=== PATIENT | female | born 1985 | race Caucasian/White ===

== ENCOUNTER 2019-03-21 06:51 | Inpatient (IN) ==
[2019-03-21] MEDS ORDERED: ceFAZolin 2,000 MG in PREMIX 1 EACH IV ONE (07:24)
[2019-03-21] MEDS ORDERED: FAMOTIDINE 20 MG/2 ML VIAL IV ONE (07:24)
[2019-03-21] MEDS ORDERED: CITRIC ACID/SODIUM CITRATE 30 ML UDCUP PO ONE (07:24)
[2019-03-21] MEDS ORDERED: LACTATED RINGERS 1,000 ML IV ONE (07:24)
[2019-03-21] MEDS ORDERED: LACTATED RINGERS 1,000 ML IV SCH ×2 (07:30→13:00)
[2019-03-21] MEDS ORDERED: OXYTOCIN 10 UNIT/ML VIAL IM ONE (07:31)
[2019-03-21] MEDS ORDERED: OXYTOCIN/LR 30 UNIT/1,000 ML BAG IV ONE (07:31)
[2019-03-21 07:44] LABS: Basophils % 0.4 % (0.0-0.8); Eosinophils # 0.2 10*3/uL (0.0-0.87); Eosinophils % 1.7 % (0.00-10.9); Hematocrit 32.4 VOL% (35.7-47.0); Hemoglobin 10.7 GM/DL (12.0-16.0); Immature Granulocytes % 2.1 %; Immature Granulocytes Absolute 0.19 #; Lymphocytes # 1.9 10*3/uL (1.4-4.0); Lymphocytes % 20.7 % (21.3-54.2); Mean Corpuscular Volume 93.1 FL (87-102); Mean Platelet Volume 9.6 FL (9.6-12.0); Monocytes % 9.4 % (1.7-12.7); Neutrophils % 65.7 % (38.7-73.9); Platelet Count 247 T/CUMM (130-400); Red Blood Count 3.48 MC/CUMM (3.8-5.5); Red Cell Distribution Width 13.8 % (9.3-17.3); White Blood Count 9.1 T/CUMM (4-12)
[2019-03-21 08:13] LABS: Alanine Aminotransferase 27 U/L (13-56); Albumin 2.7 G/DL (3.4-5.0); Alkaline Phosphatase 115 U/L (45-117); Aspartate Amino Transferase 32 U/L (0-37); Bilirubin,Total < 0.39 MG/DL (0.2-1.0); Blood Urea Nitrogen 5 MG/DL (7-18); Calcium 8.7 MG/DL (8.5-10.1); Estimated Glom Filtration Rate 146 ML/MIN; Glucose 80 MG/DL (74-106); Osmolality,Calculated 276.3 MOS/KG (273-304); Total Protein 6.3 G/DL (6.4-8.3)
[2019-03-21] MEDS ORDERED: miSOPROStoL 200 MCG TABLET ONE (10:59)
[2019-03-21] MEDS ORDERED: OXYTOCIN/LR 20 UNIT/1,000 ML BAG IV ONE ×2 (10:59→12:44)
[2019-03-21] MEDS ORDERED: TRANEXAMIC ACID 1,000 MG/10 ML VIAL ONE (10:59)
[2019-03-21] MEDS ORDERED: CARBOPROST TROMETHAMINE 250 MCG/ML AMP IM ONE (11:00)
[2019-03-21] MEDS ORDERED: METHYLERGONOVINE 0.2 MG/1 ML AMP ONE (11:00)
[2019-03-21 12:41] LABS: Cord Arterial Blood HCO3 20.2 MMOL/L
[2019-03-21 12:44] LABS: Cord Venous Blood HCO3 22.5 MMOL/L; Cord Venous Blood PCO2 46.4 MMHG; Cord Venous Blood PO2 25.9
[2019-03-21] MEDS ORDERED: SIMETHICONE CHEW 80 MG TABLET PO PRN (12:44)
[2019-03-21] MEDS ORDERED: ACETAMINOPHEN 325 MG TABLET PO PRN (12:44)
[2019-03-21] MEDS ORDERED: ONDANSETRON 4 MG/2 ML VIAL IV PRN (12:44)
[2019-03-21] MEDS ORDERED: MAGNESIUM HYDROXIDE SUSP 30 ML UDCUP PO PRN (12:44)
[2019-03-21] MEDS ORDERED: RHO(D) IMMUNE GLOBULIN 300 MCG SYRINGE IM ONE (12:44)
[2019-03-21 12:50] LABS: Apearance,Urine CLEAR (Clear); Bilirubin,Urine Negative (Negative); Blood, Urine Negative (Negative); Glucose,Urine (UA) Negative (Negative); Ketones,Urine 20 mg/dL (Negative); Mucus,Urine Occasional /LPF (Occasional); Nitrite,Urine Negative (Negative); Protein,Urine Negative; RBC,Urine 1 /HPF (0-4); Squamous Epithelial Cell,Urine Occasional /HPF (0-10); Urine Color Yellow (Yellow); Urine Specific Gravity 1.013 (1.001-1.035); Urine Urobilinogen < 2.0 EU/DL (0.2-1.0); WBC,Urine 1 /HPF (0-6)
[2019-03-21] MEDS ORDERED: BUPIVACAINE SPINAL 0.75% 2 ML AMP SPINAL ONE (13:10)
[2019-03-21] MEDS ORDERED: ONDANSETRON 4 MG/2 ML VIAL ONE (13:11)
[2019-03-21] MEDS ORDERED: ePHEDrine 50 MG/ML AMP ONE (13:11)
[2019-03-21] MEDS ORDERED: PHENYLEPHRINE 1 MG/10 ML SYRINGE IV ONE (13:11)
[2019-03-21] MEDS ORDERED: fentaNYL 100 MCG/2 ML VIAL ONE (13:11)
[2019-03-21] MEDS ORDERED: MORPHINE 10 MG/10 ML VIAL ONE (13:11)
[2019-03-21] MEDS ORDERED: BUPIVACAINE 0.5% 50 ML VIAL ONE (13:12)
[2019-03-21] MEDS ORDERED: DEXAMETHASONE 4 MG/1 ML VIAL ONE (13:12)
[2019-03-21] MEDS ORDERED: diphenhydrAMINE 50 MG/1 ML VIAL ONE (15:21)
[2019-03-21] MEDS: diphenhydrAMINE 50 MG/1 ML VIAL IV SCH (15:27)
[2019-03-21] MEDS ORDERED: hydrOXYzine HCL 25 MG/1 ML VIAL IM PRN (19:58)
[2019-03-21 20:02] LABS: Basophils % 0.2 % (0.0-0.8); Hematocrit 30.6 VOL% (35.7-47.0); Hemoglobin 9.9 GM/DL (12.0-16.0); Immature Granulocytes % 0.7 %; Immature Granulocytes Absolute 0.12 #; Lymphocytes # 1.3 10*3/uL (1.4-4.0); Lymphocytes % 6.8 % (21.3-54.2); Mean Corpuscular HGB Conc 32.4 GM/DL (32-36); Mean Corpuscular Volume 93.3 FL (87-102); Monocytes % 4.4 % (1.7-12.7); Neutrophils % 87.9 % (38.7-73.9); Platelet Count 233 T/CUMM (130-400); Red Blood Count 3.28 MC/CUMM (3.8-5.5); Red Cell Distribution Width 13.6 % (9.3-17.3); White Blood Count 18.4 T/CUMM (4-12)
[2019-03-21] MEDS: ceFAZolin 1,000 MG in SYRINGE 1 EACH IV SCH (20:33)
[2019-03-21] MEDS: DOCUSATE SODIUM 100 MG CAPSULE PO SCH (21:20)
[2019-03-22] MEDS: KETOROLAC 30 MG/1 ML VIAL IV PRN ×2 (00:20→05:49)
[2019-03-22] MEDS: ceFAZolin 1,000 MG in SYRINGE 1 EACH IV SCH (03:30)
[2019-03-22 05:39] LABS: Basophils % 0.2 % (0.0-0.8); Eosinophils # 0.1 10*3/uL (0.0-0.87); Eosinophils % 0.4 % (0.00-10.9); Hematocrit 28.6 VOL% (35.7-47.0); Hemoglobin 9.2 GM/DL (12.0-16.0); Immature Granulocytes % 0.9 %; Immature Granulocytes Absolute 0.14 #; Lymphocytes # 2.8 10*3/uL (1.4-4.0); Lymphocytes % 18.3 % (21.3-54.2); Mean Corpuscular HGB Conc 32.2 GM/DL (32-36); Mean Corpuscular Volume 94.1 FL (87-102); Mean Platelet Volume 10.1 FL (9.6-12.0); Monocytes % 9.7 % (1.7-12.7); Neutrophils % 70.5 % (38.7-73.9); Platelet Count 243 T/CUMM (130-400); Red Blood Count 3.04 MC/CUMM (3.8-5.5); Red Cell Distribution Width 13.9 % (9.3-17.3)
[2019-03-22] MEDS: diphenhydrAMINE 50 MG/1 ML VIAL IV SCH (05:59)
[2019-03-22] MEDS: MULTIVITAMIN (PRENATAL) TABLET PO SCH (10:15)
[2019-03-22] MEDS: DOCUSATE SODIUM 100 MG CAPSULE PO SCH ×2 (10:15→20:08)
[2019-03-22] MEDS: METOCLOPRAMIDE 10 MG TABLET PO SCH ×3 (10:15→23:25)
[2019-03-22] MEDS: IBUPROFEN 800 MG TABLET PO PRN ×2 (15:16→23:25)
[2019-03-22] MEDS ORDERED: diphenhydrAMINE CAP 25 MG CAPSULE PO PRN (19:44)
[2019-03-23] MEDS: METOCLOPRAMIDE 10 MG TABLET PO SCH ×2 (08:33→18:11)
[2019-03-23] MEDS: IBUPROFEN 800 MG TABLET PO PRN (08:33)
[2019-03-23] MEDS: MULTIVITAMIN (PRENATAL) TABLET PO SCH (08:33)
[2019-03-23] MEDS: DOCUSATE SODIUM 100 MG CAPSULE PO SCH (08:33)
[2019-03-23] MEDS ORDERED: PROMETHAZINE 25 MG/1 ML VIAL IM PRN (10:38)
[2019-03-23] MEDS ORDERED: LACTATED RINGERS 1,000 ML IV ONE (10:38)
[2019-03-23] MEDS ORDERED: MEPERIDINE 25 MG/1 ML VIAL IV PRN (10:38)
[2019-03-23] MEDS ORDERED: ONDANSETRON 4 MG/2 ML VIAL IV PRN (10:39)
[2019-03-23] MEDS ORDERED: ONDANSETRON 4 MG/2 ML VIAL ONE (11:39)
[2019-03-23] MEDS ORDERED: ONDANSETRON 4 MG/2 ML VIAL IV ONE (11:40)
[2019-03-23] MEDS ORDERED: DIPH/TET/ACEL PERT BOOSTER VACCINE 0.5 ML VIAL IM ONE (15:05)
[2019-03-23 16:23] VITALS: BP 121/66
== END 2019-03-23 17:50 | disposition home or self-care (01) | DRG 785 ==
LOC: N.LDOUT 06:51 → N.LD 06:52 → N.OB 15:00
PROVIDERS: ADMIT Obstetrics & Gynecology; ATTEND Obstetrics & Gynecology

== ENCOUNTER 2019-03-25 10:55 | Observation (INO) ==
[2019-03-25] MEDS ORDERED: ONDANSETRON 4 MG/2 ML VIAL IV STA (12:09)
[2019-03-25] MEDS ORDERED: HYDROmorphone 2 MG/1 ML VIAL IV STA ×2 (12:09→13:44)
[2019-03-25] MEDS ORDERED: IBUPROFEN 800 MG TABLET PO PRN (13:43)
[2019-03-25] MEDS ORDERED: MAGNESIUM HYDROXIDE SUSP 30 ML UDCUP PO PRN (13:43)
[2019-03-25] MEDS ORDERED: ACETAMINOPHEN 325 MG TABLET PO PRN (13:43)
[2019-03-25] MEDS ORDERED: ONDANSETRON 4 MG/2 ML VIAL IV PRN (13:43)
[2019-03-25] MEDS ORDERED: BISACODYL 10 MG SUPP RECTAL PRN (13:43)
[2019-03-25] MEDS ORDERED: PROMETHAZINE 25 MG/1 ML VIAL IM STA (13:44)
[2019-03-25] MEDS: LACTATED RINGERS 1,000 ML IV SCH (14:20)
[2019-03-25] MEDS ORDERED: LACTATED RINGERS 1,000 ML IV ONE (15:20)
[2019-03-25] MEDS ORDERED: SUMAtriptan 6 MG/0.5 ML VIAL SUBCUT ONE (15:36)
[2019-03-25] MEDS: CYCLOBENZAPRINE 10 MG TABLET PO SCH ×2 (16:12→23:25)
[2019-03-25] MEDS: BUTALBITAL/ACETAMIN/CAFFEINE 50-325-40 MG TABLET PO SCH ×2 (16:12→23:25)
[2019-03-25] MEDS: DOCUSATE SODIUM 100 MG CAPSULE PO SCH (21:41)
[2019-03-26] MEDS: LACTATED RINGERS 1,000 ML IV SCH (00:37)
[2019-03-26] MEDS ORDERED: SUMAtriptan 6 MG/0.5 ML VIAL SUBCUT ONE (06:00)
[2019-03-26] MEDS: DOCUSATE SODIUM 100 MG CAPSULE PO SCH (09:33)
[2019-03-26] MEDS: BUTALBITAL/ACETAMIN/CAFFEINE 50-325-40 MG TABLET PO SCH (09:33)
[2019-03-26] MEDS: CYCLOBENZAPRINE 10 MG TABLET PO SCH (09:34)
[2019-03-26 11:17] VITALS: BP 110/66
== END 2019-03-26 13:50 | disposition home or self-care (01) ==
LOC: N.ED 10:55 → N.EDINP 10:55 → N.OB 14:11
PROVIDERS: ADMIT Obstetrics & Gynecology; ATTEND Obstetrics & Gynecology